=== PATIENT | female | born 1965 | race Caucasian/White ===

== ENCOUNTER 2022-05-17 16:28 | Emergency (ER) | payer SELFPAY ==
[2022-05-17] MEDS ORDERED: Sodium Chloride 0.9% 1,000 ML IV SCH (17:00)
[2022-05-17 18:06] LABS: CORONAVIRUS COVID-19 NAA NEGATIVE (NEGATIVE)
== END 2022-05-17 20:03 | disposition home or self-care (01) ==
LOC: JD.ED 16:28
DX: R00.0 Tachycardia, unspecified (principal); E11.9 Type 2 diabetes mellitus without complications; Z88.0 Allergy status to penicillin; Z88.8 Allergy status to other drugs, medicaments and biological substances; Z20.822 Contact with and (suspected) exposure to COVID-19
CPT/HCPCS: 0241U; 36415; 71046; 80053; 81001; 82947; 84443; 85025; 93005; 96360; 96361; 99285; J7030; 93010; 99283

== ENCOUNTER 2023-01-22 19:02 | Emergency (ER) | payer BC | END 2023-01-22 20:10 | disposition home or self-care (01) | LOC: JD.ED 19:02 | DX: K64.9 Unspecified hemorrhoids (principal); I48.91 Unspecified atrial fibrillation; E11.9 Type 2 diabetes mellitus without complications; Z88.0 Allergy status to penicillin; Z88.8 Allergy status to other drugs, medicaments and biological substances | CPT/HCPCS: 99283 ==

== ENCOUNTER → 2024-01-07 | Day surgery (SDC) | payer BC ==
[~2024-01-07] MED LIST: Ketorolac 15 MG/ML SDV ONE; Lidocaine 2% 5 ML SDV ONE; Propofol 200 MG/20 ML SDV ONE; Sodium Chloride 0.9% 10 ML Syringe FLUSH PRN; Sodium Chloride 0.9% 10 ML Syringe FLUSH SCH; dexmedeTOMIDine HCl 200 MCG/2 ML SDV ONE
[2024-01-07] MEDS: Lactated Ringers 1,000 ML IV SCH (08:00)
[2024-01-07] MEDS: Bupivacaine 0.5% 30 ML SDV ONE (09:00)
== END ==
LOC: JD.SDS 07:38
PROVIDERS: ATTEND Surgery
DX: K29.50 Unspecified chronic gastritis without bleeding (principal); K21.00 Gastro-esophageal reflux disease with esophagitis, without bleeding; K64.4 Residual hemorrhoidal skin tags; E11.9 Type 2 diabetes mellitus without complications; F32.9 Major depressive disorder, single episode, unspecified; Z79.4 Long term (current) use of insulin; Z79.899 Other long term (current) drug therapy
CPT/HCPCS: 43239; 45378; 46221; J0665; J1885; J2704; J3490; J7120; 00813